=== PATIENT | male | born 1985 | race Caucasian/White ===

== ENCOUNTER 2017-01-30 20:02 | Emergency (ER) | payer MEDICAID ==
[~2017-01-30] VITALS: Ht 175.3 cm; Wt 77.7 kg
[2017-01-30] MEDS ORDERED: SODIUM CHLORIDE 0.9% 1,000 ML IV ONE (20:12)
[2017-01-30] MEDS ORDERED: SODIUM CHLORIDE FLUSH 10ML SYR IVF ONE (20:30)
[2017-01-30] MEDS ORDERED: FAMOTIDINE 20 MG/2 ML IVPush ONE (20:30)
[2017-01-30 20:56] LABS: HEMOGLOBIN 16.1 g/dL (13.7-18.0)
[2017-01-30] MEDS ORDERED: SODIUM CHLORIDE 0.9% 1,000ML IVBOLUS ONE (21:00)
[2017-01-30] MEDS ORDERED: MORPHINE SULFATE 4 MG/ML, 1ML IVPush PRN (21:00)
[2017-01-30] MEDS ORDERED: ONDANSETRON 2MG/ML, 2ML IVPush ONE (21:00)
[2017-01-30 21:06] LABS: BLOOD UREA NITROGEN 18 mg/dL (7-18)
[2017-01-30] MEDS ORDERED: ONDANSETRON 2MG/ML, 2ML ONE (21:06)
[2017-01-30] MEDS ORDERED: FAMOTIDINE 20 MG/2 ML ONE (21:06)
[2017-01-30] MEDS ORDERED: MORPHINE SULFATE 4 MG/ML, 1ML ONE (21:06)
[2017-01-30 21:08] LABS: ASPARTATE AMINO TRANSFERASE 73 U/L (15-37)
[2017-01-30] MEDS ORDERED: OMNIPAQUE 350 MG/ML, 100ML BOTTLE ONE (21:32)
[2017-01-30 22:37] VITALS: BP 127/88
== END 2017-01-30 22:41 | disposition home or self-care (01) ==
LOC: ED 20:58
DX: K52.9 Noninfective gastroenteritis and colitis, unspecified (principal); K64.8 Other hemorrhoids; R94.5 Abnormal results of liver function studies; I10 Essential (primary) hypertension
CPT/HCPCS: 36415; 46600; 74177; 80053; 81003; 83690; 85025; 85610; 85730; 96374; 96375; 99285; J2405; J7030; Q9967; S0028

== ENCOUNTER 2017-02-12 08:32 | Inpatient (IN) | payer MEDICAID ==
[~2017-02-12] VITALS: Ht 175.3 cm; Wt 79.4 kg
[2017-02-12 01:20] VITALS: BP 118/81
[2017-02-12] MEDS ORDERED: ONDANSETRON 2MG/ML, 2ML IVPush ONE (09:00)
[2017-02-12] MEDS ORDERED: SODIUM CHLORIDE 0.9% 1,000ML IVBOLUS ONE ×2 (09:00→11:00)
[2017-02-12] MEDS ORDERED: SODIUM CHLORIDE FLUSH 10ML SYR IVF ONE (09:00)
[2017-02-12] MEDS ORDERED: MORPHINE SULFATE 4 MG/ML, 1ML ONE ×2 (09:20→10:47)
[2017-02-12] MEDS: MORPHINE SULFATE 4 MG/ML, 1ML IVPush PRN ×6 (09:30→23:16)
[2017-02-12 09:50] LABS: ASPARTATE AMINO TRANSFERASE 46 U/L (15-37); BLOOD UREA NITROGEN 15 mg/dL (7-18)
[2017-02-12] MEDS ORDERED: CEFTRIAXONE PMX 1GM/50ML 50 ML IV SCH (11:30)
[2017-02-12] MEDS ORDERED: DOCUSATE 100 MG CAPSULE PO PRN (11:30)
[2017-02-12] MEDS ORDERED: LORazepam 1MG TABLET PO PRN ×2 (11:30)
[2017-02-12] MEDS ORDERED: ONDANSETRON 2MG/ML, 2ML IVP PRN (11:30)
[2017-02-12] MEDS ORDERED: POLYETHYLENE GLYCOL 17 GM PACKET PO PRN (11:30)
[2017-02-12] MEDS ORDERED: ACETAMINOPHEN 325 MG TABLET PO PRN (11:30)
[2017-02-12] MEDS ORDERED: LORazepam 2 MG/ML, 1ML IV PRN ×2 (11:30)
[2017-02-12] MEDS ORDERED: OXYcodone IR 5MG TABLET PO PRN (11:30)
[2017-02-12] MEDS ORDERED: LORazepam 0.5MG TABLET PO PRN (11:30)
[2017-02-12 12:06] VITALS: BP 136/89
[2017-02-12] MEDS ORDERED: ENOXAPARIN 40 MG/0.4 ML SQ SCH (12:30)
[2017-02-12 12:39] LABS: PATH.CAST-FLAG NOT PRESENT; SPERM-FLAG NOT PRESENT; SRC-FLAG NOT PRESENT; XTAL-FLAG NOT PRESENT; YLC-FLAG NOT PRESENT
[2017-02-12] MEDS ORDERED: NICOTINE 7 MG/24 HR PATCH.TD24 TD SCH (13:00)
[2017-02-12] MEDS: METRONIDAZOLE PMX 500MG/100ML 100 ML IV SCH ×2 (13:15→21:51)
[2017-02-12] MEDS: NS + 20MEQ KCL 1,000 ML IV SCH ×2 (13:15→21:51)
[2017-02-12] MEDS: PANTOPRAZOLE 40 MG IV IVP SCH ×2 (13:16→21:00)
[2017-02-12 20:00] VITALS: BP 118/81
[2017-02-12] MEDS: LORazepam 2 MG/ML, 1ML IV PRN (20:01)
[2017-02-13] MEDS: MORPHINE SULFATE 4 MG/ML, 1ML IVPush PRN ×3 (02:16→08:34)
[2017-02-13 02:48] VITALS: BP 143/90
[2017-02-13] MEDS: LORazepam 2 MG/ML, 1ML IV PRN (02:50)
[2017-02-13] MEDS ORDERED: CEFTRIAXONE PMX 2GM/50ML 50 ML IV SCH (03:30)
[2017-02-13 03:59] LABS: BLOOD UREA NITROGEN 7 mg/dL (7-18)
[2017-02-13] MEDS ORDERED: OMNIPAQUE 350 MG/ML, 100ML BOTTLE ONE (04:02)
[2017-02-13] MEDS ORDERED: METR500T PO (04:02)
[2017-02-13] MEDS ORDERED: METO50TA3 PO (04:04)
[2017-02-13] MEDS ORDERED: amlodipine PO (04:05)
[2017-02-13 04:18] LABS: ASPARTATE AMINO TRANSFERASE 42 U/L (15-37)
[2017-02-13] MEDS: NS + 20MEQ KCL 1,000 ML IV SCH (05:20)
[2017-02-13] MEDS: METRONIDAZOLE PMX 500MG/100ML 100 ML IV SCH (05:20)
[2017-02-13] MEDS ORDERED: METOPROLOL TARTRATE 50 MG TABLET PO SCH (06:00)
[2017-02-13 07:01] VITALS: BP 129/78
[2017-02-13] MEDS: PANTOPRAZOLE 40 MG IV IVP SCH (08:46)
[2017-02-13] MEDS ORDERED: metroNIDAZOLE 500 MG TABLET PO SCH (09:00)
[2017-02-13] MEDS ORDERED: AMLODIPINE 5 MG TABLET PO SCH (09:00)
== END 2017-02-13 11:43 | disposition left against medical advice (07) | DRG 872 ==
LOC: ED 10:34 → EDIP 10:44 → 3NE 12:02
PROVIDERS: ADMIT Family Medicine; ATTEND Family Medicine
DX: A41.9 Sepsis, unspecified organism (principal); F10.10 Alcohol abuse, uncomplicated; F12.90 Cannabis use, unspecified, uncomplicated; F17.210 Nicotine dependence, cigarettes, uncomplicated; I10 Essential (primary) hypertension; K29.20 Alcoholic gastritis without bleeding; Z82.49 Family history of ischemic heart disease and other diseases of the circulatory system
CPT/HCPCS: 36415; 71010; 74020; 74177; 80053; 81001; 83605; 83690; 83735; 85025; 85610; 87040; 93005; 96374; 96375; 96376; J0696; J1650; J2405; J3480; Q9967; C9113; J2060; J7030

== ENCOUNTER 2017-03-04 14:02 | Emergency (ER) | payer MEDICAID ==
[~2017-03-04] VITALS: Ht 175.3 cm; Wt 76.7 kg
[~2017-03-04 14:02] MED LIST: METO50TA3 PO; METR500T PO; amlodipine PO
[2017-03-04] MEDS ORDERED: SODIUM CHLORIDE FLUSH 10ML SYR IVF ONE (14:30)
[2017-03-04] MEDS ORDERED: LORazepam 1MG TABLET PO ONE (15:00)
[2017-03-04] MEDS ORDERED: ACETAMINOPHEN 325 MG TABLET PO ONE (15:00)
[2017-03-04 15:05] LABS: BLOOD UREA NITROGEN 6 mg/dL (7-18)
[2017-03-04 15:10] LABS: IS PT STATUS REG ER OR PRE ER? YES
[2017-03-04] MEDS ORDERED: LORazepam 1MG TABLET ONE (15:25)
[2017-03-04] MEDS ORDERED: ACETAMINOPHEN 325 MG TABLET ONE (15:25)
[2017-03-04 15:26] LABS: ACETAMINOPHEN < 2 mcg/mL (10-30)
[2017-03-04 16:30] VITALS: BP 116/76
[2017-03-04] MEDS ORDERED: AMLO10TA2 PO (21:42)
== END 2017-03-04 17:21 | disposition left against medical advice (07) ==
LOC: ED 16:09
DX: F10.129 Alcohol abuse with intoxication, unspecified (principal); I10 Essential (primary) hypertension
CPT/HCPCS: 36415; 71020; 80048; 80307; 80329; 82040; 83690; 84484; 85025; 93005; 99285; G0480

== ENCOUNTER 2017-03-04 21:12 | Emergency (ER) | payer MEDICAID ==
[~2017-03-04] VITALS: Ht 175.3 cm; Wt 78.2 kg
[2017-03-04] MEDS ORDERED: AMLO10TA2 PO (21:42)
[2017-03-04] MEDS ORDERED: ONDANSETRON ODT 4 MG ONE (22:02)
[2017-03-04] MEDS ORDERED: LORazepam 1MG TABLET ONE (22:02)
[2017-03-04] MEDS ORDERED: BUPIVACAINE 0.25% ONE (22:09)
[2017-03-04] MEDS ORDERED: LIDOCAINE 1%, 20ML ONE (22:09)
[2017-03-04] MEDS ORDERED: BUPIVACAINE 0.25% INFIL ONE (22:30)
[2017-03-04] MEDS ORDERED: LIDOCAINE 1%, 20ML SQ ONE (22:30)
[2017-03-04] MEDS ORDERED: LORazepam 1MG TABLET PO ONE (22:30)
[2017-03-04] MEDS ORDERED: ONDANSETRON ODT 4 MG PO ONE (22:30)
[2017-03-04 22:37] VITALS: BP 124/75
== END 2017-03-04 22:39 | disposition home or self-care (01) ==
LOC: ED 22:29
DX: F10.229 Alcohol dependence with intoxication, unspecified (principal); K08.9 Disorder of teeth and supporting structures, unspecified; I10 Essential (primary) hypertension
CPT/HCPCS: 64400; 99284; Q0162

== ENCOUNTER 2017-06-28 18:37 | Emergency (ER) | payer MEDICAID ==
[~2017-06-28] VITALS: Ht 175.3 cm; Wt 84.2 kg
[~2017-06-28 18:37] MED LIST changes: +AMLO10TA2 PO
[2017-06-28 18:42] VITALS: BP 148/101
[2017-06-28] MEDS ORDERED: SODIUM CHLORIDE 0.9% 1,000 ML IV ONE (18:52)
[2017-06-28] MEDS ORDERED: PANTOPRAZOLE 80 MG in SODIUM CHLORIDE 0.9% 100 ML IV SCH (18:52)
[2017-06-28] MEDS ORDERED: PANTOPRAZOLE 80 MG in SODIUM CHLORIDE 0.9% 50 ML IVPB ONE (18:52)
[2017-06-28] MEDS ORDERED: SODIUM CHLORIDE 0.9% 1,000ML IVBOLUS ONE (19:00)
[2017-06-28 19:16] LABS: HEMATOCRIT 48.8 % (39.2-51.8); WHITE BLOOD COUNT 9.8 x10^3/uL (3.4-10)
[2017-06-28 19:28] LABS: ASPARTATE AMINO TRANSFERASE 209 U/L (15-37); BLOOD UREA NITROGEN 6 mg/dL (7-18)
[2017-06-28 19:32] LABS: IS PT STATUS REG ER OR PRE ER? YES
[2017-06-28] MEDS ORDERED: ONDANSETRON 2MG/ML, 2ML IVPush ONE (21:00)
[2017-06-28] MEDS ORDERED: ONDANSETRON 2MG/ML, 2ML ONE (21:06)
[2017-06-28] MEDS ORDERED: MORPHINE SULFATE 4 MG/ML, 1ML ONE ×2 (21:06→21:28)
[2017-06-28] MEDS: MORPHINE SULFATE 4 MG/ML, 1ML IVPush PRN ×2 (21:34→22:04)
== END 2017-06-28 22:05 | disposition home or self-care (01) ==
LOC: ED 22:00
DX: K29.20 Alcoholic gastritis without bleeding (principal); E11.9 Type 2 diabetes mellitus without complications; I10 Essential (primary) hypertension; F17.200 Nicotine dependence, unspecified, uncomplicated
CPT/HCPCS: 36415; 71010; 80053; 83690; 84484; 85025; 86850; 86900; 93005; 96365; 96366; 96367; 96375; 99285; C9113; J2405; J7030

== ENCOUNTER 2017-07-11 08:31 | Emergency (ER) | payer MEDICAID ==
[~2017-07-11] VITALS: Ht 175.3 cm; Wt 83.8 kg
[2017-07-11] MEDS ORDERED: SODIUM CHLORIDE 0.9% 1,000 ML IV ONE (09:29)
[2017-07-11] MEDS ORDERED: SODIUM CHLORIDE 0.9% 1,000ML IVBOLUS ONE (09:30)
[2017-07-11] MEDS ORDERED: ONDANSETRON 2MG/ML, 2ML ONE (09:43)
[2017-07-11] MEDS ORDERED: FAMOTIDINE 20 MG/2 ML ONE (09:44)
[2017-07-11] MEDS ORDERED: LORazepam 2 MG/ML, 1ML ONE (09:44)
[2017-07-11 09:48] LABS: HEMATOCRIT 50.3 % (39.2-51.8); HEMOGLOBIN 17.5 g/dL (13.7-18.0); WHITE BLOOD COUNT 5.2 x10^3/uL (3.4-10)
[2017-07-11] MEDS ORDERED: ONDANSETRON 2MG/ML, 2ML IVPush ONE (10:00)
[2017-07-11] MEDS ORDERED: FAMOTIDINE 20 MG/2 ML IVP ONE (10:00)
[2017-07-11] MEDS ORDERED: LORazepam 2 MG/ML, 1ML IVPush ONE (10:00)
[2017-07-11] MEDS ORDERED: MORPHINE SULFATE 4 MG/ML, 1ML ONE ×2 (10:03→11:00)
[2017-07-11 10:04] LABS: ASPARTATE AMINO TRANSFERASE 86 U/L (15-37); BLOOD UREA NITROGEN 8 mg/dL (7-18)
[2017-07-11] MEDS ORDERED: MORPHINE SULFATE 4 MG/ML, 1ML IVPush PRN (10:30)
[2017-07-11 13:59] VITALS: BP 125/75
== END 2017-07-11 14:02 | disposition home or self-care (01) ==
LOC: ED 09:28
DX: K29.20 Alcoholic gastritis without bleeding (principal); E11.9 Type 2 diabetes mellitus without complications; I10 Essential (primary) hypertension
CPT/HCPCS: 36415; 74177; 80053; 81003; 83690; 85025; 96361; 96374; 96375; 99285; J2060; J2405; J7030; S0028

== ENCOUNTER 2017-07-12 15:15 | Emergency (ER) | payer MEDICAID ==
[~2017-07-12] VITALS: Ht 175.3 cm; Wt 83.5 kg
[2017-07-12 15:49] LABS: HEMATOCRIT 48.9 % (39.2-51.8); HEMOGLOBIN 16.9 g/dL (13.7-18.0); WHITE BLOOD COUNT 7.1 x10^3/uL (3.4-10)
[2017-07-12] MEDS ORDERED: MAALOX/HYOSCYAMINE/LIDOCAINE 45 ML BTL PO ONE (16:00)
[2017-07-12 16:03] LABS: ASPARTATE AMINO TRANSFERASE 107 U/L (15-37); BLOOD UREA NITROGEN 7 mg/dL (7-18)
[2017-07-12] MEDS ORDERED: MAALOX/HYOSCYAMINE/LIDOCAINE 45 ML BTL ONE (16:03)
[2017-07-12 16:12] VITALS: BP 129/100
== END 2017-07-12 16:34 | disposition left against medical advice (07) ==
LOC: ED 15:54
DX: K76.0 Fatty (change of) liver, not elsewhere classified (principal); K70.10 Alcoholic hepatitis without ascites; K29.20 Alcoholic gastritis without bleeding; I10 Essential (primary) hypertension; E11.9 Type 2 diabetes mellitus without complications
CPT/HCPCS: 36415; 80053; 83690; 85025; 85610; 99284

== ENCOUNTER 2017-11-08 18:22 | Emergency (ER) | payer MEDICAID ==
[~2017-11-08] VITALS: Ht 175.3 cm; Wt 86.6 kg
[~2017-11-08 18:22] MED LIST changes: -METO50TA3 PO; +METO50TA6 PO
[2017-11-08 19:14] LABS: BASOPHILS # (AUTO) 0.02 x10^3/uL (0-0.1); BASOPHILS % (AUTO) 0 % (0-1); EOSINOPHILS # (AUTO) 0.12 x10^3/uL (0-0.4); EOSINOPHILS % (AUTO) 3 % (1-7); LYMPHOCYTES % (AUTO) 34 % (22-44); MD NO; MEAN CORPUSCULAR HEMOGLOBIN 33.5 pg (27.5-34.5); MEAN CORPUSCULAR HGB CONC 34.5 g/dL (33.2-36.2); MEAN CORPUSCULAR VOLUME 97.1 fL (81-97); MEAN PLATELET VOLUME 8.5 fL (7.4-10.4); MONOCYTES # (AUTO) 0.99 x10^3/uL (0.2-0.8); MONOCYTES % (AUTO) 20 % (2-9); NEUTROPHILS # (AUTO) 2.21 x10^3/uL (1.8-6.8); NEUTROPHILS % (AUTO) 44 % (42-75); PLATELET COUNT 245 x10^3/uL (130-400); RED BLOOD COUNT 4.78 x10^6/uL (4.38-5.82); RED CELL DISTRIBUTION WIDTH 12.7 % (9.4-14.8)
[2017-11-08] MEDS ORDERED: DIPHENHYDRAMINE 50 MG/ML, 1ML ONE (19:20)
[2017-11-08] MEDS ORDERED: KETOROLAC 30 MG/1 ML ONE (19:20)
[2017-11-08] MEDS ORDERED: PROCHLORPERAZINE 5 MG/ML, 2ML ONE (19:20)
[2017-11-08 19:25] LABS: ALANINE AMINOTRANSFERASE 163 U/L (12-78); ALBUMIN 3.7 g/dL (3.4-5.0); ANION GAP 8 mmol/L (5-15); CHLORIDE 108 mmol/L (98-107); CREATININE 0.96 mg/dL (0.7-1.3)
[2017-11-08 19:27] LABS: ALKALINE PHOSPHATASE 60 U/L (45-117); BILIRUBIN,TOTAL 0.4 mg/dL (0.2-1.0); TOTAL PROTEIN 7.2 g/dL (6.4-8.2)
[2017-11-08 19:28] VITALS: BP 154/96
[2017-11-08] MEDS ORDERED: PROCHLORPERAZINE 5 MG/ML, 2ML IVPush ONE (19:30)
[2017-11-08] MEDS ORDERED: KETOROLAC 30 MG/1 ML IVPush ONE (19:30)
[2017-11-08] MEDS ORDERED: SODIUM CHLORIDE FLUSH 10ML SYR IVF ONE (19:30)
[2017-11-08] MEDS ORDERED: DIPHENHYDRAMINE 50 MG/ML, 1ML IVPush ONE (19:30)
[2017-11-08] MEDS ORDERED: SODIUM CHLORIDE 0.9% 1,000ML IVBOLUS ONE (19:30)
[2017-11-08 19:46] LABS: TROPONIN I < 0.015 ng/mL (0.000-0.045)
[2017-11-09] MEDS ORDERED: DIAZ2TAB PO (05:40)
== END 2017-11-08 19:46 | disposition left against medical advice (07) ==
LOC: ED 19:40
DX: R07.2 Precordial pain (principal); R51 Headache; F41.1 Generalized anxiety disorder; E11.9 Type 2 diabetes mellitus without complications; I10 Essential (primary) hypertension
CPT/HCPCS: 36415; 71045; 80053; 84484; 85025; 93005; 96374; 96375; 99285; J0780; J1200; J1885; J7030

== ENCOUNTER 2018-05-18 03:56 | Emergency (ER) | payer MEDICAID ==
[~2018-05-18] VITALS: Ht 175.3 cm; Wt 65.0 kg
[~2018-05-18 03:56] MED LIST changes: +DIAZ2TAB PO
[2018-05-18 04:41] LABS: BASOPHILS # (AUTO) 0.05 x10^3/uL (0-0.1); BASOPHILS % (AUTO) 1 % (0-1); EOSINOPHILS # (AUTO) 0.05 x10^3/uL (0-0.4); EOSINOPHILS % (AUTO) 1 % (1-7); LYMPHOCYTES # (AUTO) 3.65 x10^3/uL (1-3.4); LYMPHOCYTES % (AUTO) 47 % (22-44); MD NO; MEAN CORPUSCULAR HGB CONC 34.3 g/dL (33.2-36.2); MEAN CORPUSCULAR VOLUME 96.2 fL (81-97); MONOCYTES # (AUTO) 0.59 x10^3/uL (0.2-0.8); MONOCYTES % (AUTO) 8 % (2-9); NEUTROPHILS # (AUTO) 3.36 x10^3/uL (1.8-6.8); NEUTROPHILS % (AUTO) 44 % (42-75); PLATELET COUNT 359 x10^3/uL (130-400); RED BLOOD COUNT 5.18 x10^6/uL (4.38-5.82); RED CELL DISTRIBUTION WIDTH 12.3 % (9.4-14.8)
[2018-05-18 04:53] LABS: ALANINE AMINOTRANSFERASE 27 U/L (12-78); ALBUMIN 3.9 g/dL (3.4-5.0); ANION GAP 9 mmol/L (5-15); CALCIUM 8.6 mg/dL (8.5-10.1); CHLORIDE 113 mmol/L (98-107); CREATININE 0.91 mg/dL (0.7-1.3)
[2018-05-18 04:58] LABS: ALKALINE PHOSPHATASE 55 U/L (45-117); BILIRUBIN,TOTAL 0.3 mg/dL (0.2-1.0); TOTAL PROTEIN 7.2 g/dL (6.4-8.2); TROPONIN I < 0.015 ng/mL (0.000-0.045)
[2018-05-18 05:00] VITALS: BP 137/74
== END 2018-05-18 05:51 | disposition left against medical advice (07) ==
LOC: ED 05:45
DX: K29.20 Alcoholic gastritis without bleeding (principal); F10.220 Alcohol dependence with intoxication, uncomplicated; I10 Essential (primary) hypertension
CPT/HCPCS: 36415; 71045; 80053; 80307; 83690; 84484; 85025; 93005; 99285

== ENCOUNTER 2019-04-27 20:37 | Emergency (ER) | payer MEDICAID ==
[~2019-04-27] VITALS: Ht 175.3 cm; Wt 91.1 kg
[~2019-04-27 20:37] MED LIST changes: -AMLO10TA2 PO; +AMLO10TA8 PO
[2019-04-27] MEDS ORDERED: FAMOTIDINE 20 MG/2 ML IVP ONE (21:30)
[2019-04-27] MEDS ORDERED: SODIUM CHLORIDE FLUSH 10ML SYR IVF ONE (21:30)
[2019-04-27] MEDS ORDERED: ONDANSETRON 2MG/ML, 2ML IVPush ONE (21:30)
--- NOTE | 2019-04-27 21:30 | NUR ---
PT PRESENTED TO ED WITH LEFT MID QUADRANT ABD PAIN SINCE TODAY. PT WITH HX: ALCOHOLISM. PT STATES THAT HIS LAST DRINK WAS TODAY. PT A&OX4. PT PLACED IN ROOM AND PLACED ON BP AND CONT. PULSE OXIMETER. ASSESSMENT COMPLETED.
[2019-04-27] MEDS ORDERED: FAMOTIDINE 20 MG/2 ML ONE (21:35)
[2019-04-27] MEDS ORDERED: ONDANSETRON 2MG/ML, 2ML ONE (21:36)
[2019-04-27] MEDS ORDERED: HYDROmorphone 2 MG/ML, 1ML ONE (21:36)
[2019-04-27 21:37] LABS: BASOPHILS # (AUTO) 0.04 x10^3/uL (0-0.1); BASOPHILS % (AUTO) 1 % (0-1); EOSINOPHILS # (AUTO) 0.07 x10^3/uL (0-0.4); EOSINOPHILS % (AUTO) 1 % (1-7); LYMPHOCYTES # (AUTO) 2.79 x10^3/uL (1-3.4); LYMPHOCYTES % (AUTO) 45 % (22-44); MD NO; MEAN CORPUSCULAR HEMOGLOBIN 34.2 pg (27.5-34.5); MEAN CORPUSCULAR HGB CONC 34.4 g/dL (33.2-36.2); MEAN CORPUSCULAR VOLUME 99.3 fL (81-97); MEAN PLATELET VOLUME 7.9 fL (7.4-10.4); MONOCYTES # (AUTO) 0.49 x10^3/uL (0.2-0.8); MONOCYTES % (AUTO) 8 % (2-9); NEUTROPHILS # (AUTO) 2.78 x10^3/uL (1.8-6.8); NEUTROPHILS % (AUTO) 45 % (42-75); PLATELET COUNT 295 x10^3/uL (130-400); RED BLOOD COUNT 4.74 x10^6/uL (4.38-5.82); RED CELL DISTRIBUTION WIDTH 13.5 % (9.4-14.8)
[2019-04-27] MEDS: HYDROmorphone 2 MG/ML, 1ML IVPush PRN ×2 (21:39→22:50)
[2019-04-27 21:48] LABS: ALBUMIN 3.4 g/dL (3.4-5.0); ANION GAP 7 mmol/L (5-15); CALCIUM 7.2 mg/dL (8.5-10.1); CHLORIDE 111 mmol/L (98-107)
[2019-04-27 21:51] LABS: ALKALINE PHOSPHATASE 61 U/L (45-117); BILIRUBIN,TOTAL 0.5 mg/dL (0.2-1.0); CREATININE 0.96 mg/dL (0.7-1.3); TOTAL PROTEIN 6.8 g/dL (6.4-8.2)
[2019-04-27 22:03] LABS: ALANINE AMINOTRANSFERASE 90 U/L (12-78)
[2019-04-27 22:04] LABS: INTERNATIONAL NORMALIZED RATIO 1.03 (0.93-1.1); PROTHROMBIN TIME 10.8 Seconds (9.6-11.5)
--- NOTE | 2019-04-27 22:32 | NUR ---
PT TAKEN TO CT SCAN.
--- NOTE | 2019-04-27 22:49 | NUR ---
PT WITH PAIN OF 5/10 AND REQUESTING MORE PAIN MEDICATIONS.
--- NOTE | 2019-04-27 23:09 | NUR ---
RECEIVED BS REPORT FROM JIAN MARTIN TO ASSUME CARE OF PT. URINE SENT AT THIS TIME. PT. DENIES OTHER NEEDS.
[2019-04-27 23:30] LABS: MICROSCOPIC NOT IND
[2019-04-27 23:48] LABS: CULTURE INDICATED? NO
--- NOTE | 2019-04-28 | NUR ---
CHART UP FOR RECHECK BY ERMD AT THIS TIME.
--- NOTE | 2019-04-28 00:17 | NUR ---
DR. ODONNELL IN TO DISCUSS ED FINDINGS AND POC WITH PT. AND FAMILY.
--- NOTE | 2019-04-28 00:25 | NUR ---
BREAK RN: PT RESTING IN BED, PT DESATED TO 86% ON RA. PT PLACED BACK ON O2 PER N/C. PT AWAITING ROOM ASSIGNMENT
[2019-04-28] MEDS ORDERED: SODIUM CHLORIDE 0.9% 1,000ML IVBOLUS ONE (00:30)
[2019-04-28] MEDS ORDERED: KETOROLAC 30 MG/1 ML IVPush ONE (00:30)
[2019-04-28] MEDS ORDERED: PANTOPRAZOLE 40 MG IV IVPush SCH (00:30)
[2019-04-28] MEDS ORDERED: HYDROmorphone 1 MG/ML, 1ML INJ IV ONE (00:30)
[2019-04-28] MEDS ORDERED: KETOROLAC 30 MG/1 ML ONE (00:38)
[2019-04-28] MEDS ORDERED: HYDROmorphone 2 MG/ML, 1ML ONE (00:39)
[2019-04-28] MEDS ORDERED: PANTOPRAZOLE 40 MG IV ONE (00:39)
--- NOTE | 2019-04-28 01:21 | NUR ---
REPORT TO JIAN DAMON. FLOOR READY FOR PT. TRANSPORT.
[2019-04-28 01:47] VITALS: BP 156/98
[2019-04-28 02:02] VITALS: BP 156/98
[2019-04-28] MEDS ORDERED: OMNIPAQUE 350 MG/ML, 100ML BOTTLE ONE (05:18)
== END 2019-04-28 00:23 ==
LOC: ED 22:48 → EDIP 04-28 00:23 → UNDOADMIN 04-28 00:23 → ED 04-28 00:23 → EDIP 04-28 01:43 → 3NW 04-28 01:43 → UNDODISIN 04-28 02:50
DX: R10.9 Unspecified abdominal pain (principal); I11.9 Hypertensive heart disease without heart failure; E11.9 Type 2 diabetes mellitus without complications; F17.200 Nicotine dependence, unspecified, uncomplicated; Z72.9 Problem related to lifestyle, unspecified; Z87.19 Personal history of other diseases of the digestive system
CPT/HCPCS: 36415; 71045; 74177; 80053; 81003; 83605; 83690; 85025; 85610; 85730; 96374; 96375; 96376; 99284; C9113; J1170; J1885; J2405; J3490; J7030; Q9967; 96361; G0378

== ENCOUNTER 2019-05-22 22:49 | Emergency (ER) | payer MEDICAID ==
[~2019-05-22] VITALS: Ht 177.8 cm; Wt 91.2 kg
[2019-05-22] MEDS ORDERED: ONDANSETRON 2MG/ML, 2ML ONE (23:40)
[2019-05-22] MEDS ORDERED: MORPHINE SULFATE 4 MG/ML, 1ML ONE (23:40)
--- NOTE | 2019-05-22 23:50 | NUR ---
FIRST CONTACT WITH PT. PT WAS WALKING TO THE STORE AND GOT [facility] 8/10 CHEST PAIN AND SOB THAT RAIDAITED TO L ARM. PT TOOK 324 ASA PRIOR TO EMS. EMS GAVE 0.4 NITRO AND 50 MCG FENTYNAL THAT BROUGHT PT PAIN DOWN TO 5/10. PT'S AOX4. RESPS EVEN AND UNLABORED. ALL MONITORS IN PLACE. CALL LIGHT WITHIN REACH. EDMD AT BEDSIDE TO EVALUATE AT THIS TIME. PT'S AOX4. RESPS EVEN AND UNLABORED.
--- NOTE | 2019-05-22 23:53 | NUR ---
PT MEDICATED PER EMAR. PT TOLERATED WELL.
[2019-05-22 23:58] LABS: ALANINE AMINOTRANSFERASE 98 U/L (12-78); ALBUMIN 3.8 g/dL (3.4-5.0); ANION GAP 9 mmol/L (5-15); CHLORIDE 109 mmol/L (98-107); CREATININE 0.88 mg/dL (0.7-1.3)
[2019-05-22 23:59] LABS: BASOPHILS # (AUTO) 0.02 x10^3/uL (0-0.1); BASOPHILS % (AUTO) 0 % (0-1); EOSINOPHILS # (AUTO) 0.02 x10^3/uL (0-0.4); EOSINOPHILS % (AUTO) 0 % (1-7); LYMPHOCYTES # (AUTO) 1.93 x10^3/uL (1-3.4); LYMPHOCYTES % (AUTO) 34 % (22-44); MD NO; MEAN CORPUSCULAR HGB CONC 34.1 g/dL (33.2-36.2); MEAN CORPUSCULAR VOLUME 99.6 fL (81-97); MEAN PLATELET VOLUME 7.8 fL (7.4-10.4); MONOCYTES # (AUTO) 0.38 x10^3/uL (0.2-0.8); MONOCYTES % (AUTO) 7 % (2-9); NEUTROPHILS # (AUTO) 3.35 x10^3/uL (1.8-6.8); NEUTROPHILS % (AUTO) 59 % (42-75); PLATELET COUNT 300 x10^3/uL (130-400); RED BLOOD COUNT 4.92 x10^6/uL (4.38-5.82); RED CELL DISTRIBUTION WIDTH 13.7 % (9.4-14.8)
[2019-05-23] MEDS ORDERED: ONDANSETRON 2MG/ML, 2ML IVPush ONE
[2019-05-23] MEDS: MORPHINE SULFATE 4 MG/ML, 1ML IVPush PRN ×2 (00:02→00:30)
[2019-05-23 00:03] LABS: ALKALINE PHOSPHATASE 57 U/L (45-117); BILIRUBIN,TOTAL 0.5 mg/dL (0.2-1.0); TOTAL PROTEIN 7.5 g/dL (6.4-8.2); TROPONIN I < 0.015 ng/mL (0.000-0.045)
[2019-05-23] MEDS ORDERED: MORPHINE SULFATE 4 MG/ML, 1ML ONE (00:28)
--- NOTE | 2019-05-23 00:33 | NUR ---
PT MEDICATED PER EMAR FOR PAIN. PT TOLERATED WELL.
[2019-05-23 00:46] LABS: MICROSCOPIC NOT IND
[2019-05-23 00:50] LABS: CULTURE INDICATED? YES
[2019-05-23] MEDS ORDERED: HYDROmorphone 1 MG/ML, 1ML VIAL ONE (01:12)
[2019-05-23 01:28] VITALS: BP 133/91
--- NOTE | 2019-05-23 01:29 | NUR ---
PT MEDICATED PER EMAR FOR PAIN. PT TOLERATED WELL.
[2019-05-23] MEDS ORDERED: HYDROmorphone 2 MG/ML, 1ML IVPush ONE (01:30)
[2019-05-23] MEDS ORDERED: OMNIPAQUE 350 MG/ML, 100ML BOTTLE ONE (01:51)
--- NOTE | 2019-05-23 02:02 | NUR ---
PT BACK TO ROOM FROM CT NOW.
--- NOTE | 2019-05-23 03:26 | NUR ---
Patient given discharge instructions and they have confirmed that they understand the instructions. Patient ambulatory with steady gait.
== END 2019-05-23 03:27 | disposition home or self-care (01) ==
LOC: ED 23:47
DX: K52.9 Noninfective gastroenteritis and colitis, unspecified (principal); K29.20 Alcoholic gastritis without bleeding; F10.229 Alcohol dependence with intoxication, unspecified; I10 Essential (primary) hypertension; E11.9 Type 2 diabetes mellitus without complications; F41.1 Generalized anxiety disorder; F17.200 Nicotine dependence, unspecified, uncomplicated; Z72.9 Problem related to lifestyle, unspecified; Z75.9 Unspecified problem related to medical facilities and other health care; Z91.14 Patient's other noncompliance with medication regimen; Z63.8 Other specified problems related to primary support group; Y90.9 Presence of alcohol in blood, level not specified
CPT/HCPCS: 36415; 74022; 74177; 80053; 80307; 81003; 83690; 84484; 85025; 87086; 93005; 96374; 96375; 99284; J1170; J2270; J2405; Q9967; 96376

== ENCOUNTER 2021-02-24 12:54 | Inpatient (IN) | payer MEDICAID ==
[~2021-02-24] VITALS: Ht 175.3 cm; Wt 94.7 kg
[~2021-02-24 12:54] MED LIST changes: +AMLO-211 PO; -AMLO10TA8 PO; +BUPR150T13 PO
--- NOTE | 2021-02-24 13:25 | NUR ---
PT. ARRIVES A & O X 4 WITH A GCS OF 15 WITH C/O HYPOXIA AFTER BEING GIVEN SUBTREX. PT. REPORTS THAT HE WAS ALSO GIVEN VALIUM 10 MG PO AT APPROXIMATELY 0800 AM TODAY. PT.'S ROOM AIR SATURATION IS 88%. HIS SATS ARE 97% ON 4/L NC. PT. IS A SMOKER AND WAS ADMITTED AT [facility] AND BEING TREATED FOR SI AND POLYSUBSTANCE ABUSE. HE REPORTS DRINKING ABOUT 2 BOTTLES A DAY IN ADDITION TO USING HEROIN, METH AND MARIJUANA. PT.'S BREATH SOUNDS ARE DIMINISHED IN THE BASES AND HE DOES C/O BACK PAIN WELL LOWER ABD. PAIN. A 12 LEAD EKG WAS DONE. IV ACCESS WAS ESTABLISHED BY ISRA IN THE FIELD. PT. HAS THE CP MONITOR IN PLACE AND A SITTER IS AT HIS BEDSIDE FROM [facility]. PT.'S SKIN IS DIAPHORETIC AND HER REMAINS CALM AND COOPERATIVE. CAP REFILL IS LESS THAN 2 SECONDS AND PULSES ARE +2 THROUGHOUT. HE MOVES ALL EXTREMITIES WNL. SIDERAILS REMAIN UP X 2.
[2021-02-24] MEDS ORDERED: SODIUM CHLORIDE 0.9% 1,000ML IVBOLUS ONE (13:30)
[2021-02-24] MEDS ORDERED: SODIUM CHLORIDE FLUSH 10ML SYR IVF ONE (13:30)
--- NOTE | 2021-02-24 13:47 | NUR ---
PT.'S NS BOLUS IS INFUSING.
--- NOTE | 2021-02-24 14:06 | NUR ---
#20 G PLACED IN THE PT.'S RAC FOR THE CTA. LABS OBTAINED FROM THE IV START.
--- NOTE | 2021-02-24 14:12 | NUR ---
PT.'S HOB WAS ELEVATED AND HE WAS GIVEN A BLANKET FOR WARMTH WELL SOME ICE CHIPS FOR HIS MOUTH. CP MONITOR REMAINS IN PLACE.
[2021-02-24 14:16] LABS: BASOPHILS % (AUTO) 1 % (0-1); EOSINOPHILS % (AUTO) 0 % (1-7); LYMPHOCYTES % (AUTO) 21 % (22-44); MEAN CORPUSCULAR HEMOGLOBIN 32.9 pg (27.5-34.5); MEAN PLATELET VOLUME 8.6 fL (7.4-10.4); MONOCYTES % (AUTO) 9 % (2-9); NEUTROPHILS % (AUTO) 69 % (42-75); PLATELET COUNT 333 x10^3/uL (130-400); RED BLOOD COUNT 4.43 x10^6/uL (4.38-5.82); RED CELL DISTRIBUTION WIDTH 13.2 % (9.4-14.8)
[2021-02-24 14:19] LABS: MD NO
[2021-02-24 14:27] LABS: ALANINE AMINOTRANSFERASE 51 U/L (12-78); ALBUMIN 3.2 g/dL (3.4-5.0); ANION GAP 5 mmol/L (5-15); CALCIUM 8.1 mg/dL (8.5-10.1); CHLORIDE 102 mmol/L (98-107); CREATININE 0.78 mg/dL (0.7-1.3)
[2021-02-24 14:31] LABS: ALKALINE PHOSPHATASE 62 U/L (45-117); BILIRUBIN,TOTAL 0.3 mg/dL (0.2-1.0); TOTAL PROTEIN 6.7 g/dL (6.4-8.2); TROPONIN I 0.069 ng/mL (0.000-0.045)
[2021-02-24] MEDS ORDERED: OMNIPAQUE 350 MG/ML, 100ML BOTTLE ONE (15:16)
--- NOTE | 2021-02-24 15:18 | NUR ---
REPORT WAS CALLED TO CHRISTOS VILLAR.
[2021-02-24] MEDS ORDERED: hydrALAzine 20 MG/ML, 1ML IVPush PRN (16:30)
[2021-02-24] MEDS ORDERED: ONDANSETRON 2MG/ML, 2ML IVPush PRN (16:30)
[2021-02-24] MEDS ORDERED: ACETAMINOPHEN 325 MG TABLET PO PRN (16:30)
[2021-02-24] MEDS ORDERED: LORazepam 1MG TABLET PO PRN ×3 (16:30)
[2021-02-24] MEDS ORDERED: ONDANSETRON ODT 4 MG PO PRN (16:30)
[2021-02-24] MEDS ORDERED: ENALAPRILAT 1.25 MG/ML, 2ML IVPush PRN (16:30)
[2021-02-24] MEDS ORDERED: LORazepam 2 MG/ML, 1ML IV PRN ×5 (16:30)
[2021-02-24] MEDS ORDERED: GUAIFENESIN/DM 200-20MG, 10ML UDC PO PRN (16:30)
[2021-02-24] MEDS ORDERED: BACLOFEN 10 MG TABLET PO PRN (16:30)
[2021-02-24] MEDS ORDERED: NICOTINE 21 MG/24 HR PATCH.TD24 TD ONE (17:30)
--- NOTE | 2021-02-24 18:13 | NUR ---
CALLED REPORT TO VENITA VILLAR ABOUT REASON PT IS BEING ADMITED
[2021-02-24] MEDS: LORazepam 1MG TABLET PO PRN (18:38)
[2021-02-24] MEDS: ENOXAPARIN 40 MG/0.4 ML SQ SCH (18:39)
[2021-02-24 20:20] VITALS: BP 114/72
[2021-02-24] MEDS: METOPROLOL TARTRATE 50 MG TAB PO SCH (20:33)
[2021-02-24] MEDS: GABAPENTIN 300 MG CAPSULE PO SCH (20:33)
[2021-02-24] MEDS: BUPROPION SR 150 MG TABLET PO SCH (20:34)
[2021-02-24] MEDS: MELATONIN 5 MG TABLET PO SCH (20:34)
[2021-02-24] MEDS: AMLODIPINE 10 MG TAB PO SCH (20:35)
[2021-02-24 22:52] LABS: TROPONIN I 0.071 ng/mL (0.000-0.045)
[2021-02-25 02:13] VITALS: BP 103/73
[2021-02-25 05:43] LABS: TROPONIN I 0.068 ng/mL (0.000-0.045)
[2021-02-25] MEDS: BUPROPION SR 150 MG TABLET PO SCH ×2 (08:10→21:27)
[2021-02-25] MEDS: SENNA/DOCUSATE TABLET PO SCH (08:10)
[2021-02-25] MEDS: GABAPENTIN 300 MG CAPSULE PO SCH ×2 (08:10→21:27)
[2021-02-25 08:20] VITALS: BP 114/79
[2021-02-25 12:36] VITALS: BP 118/69
[2021-02-25 20:04] VITALS: BP 138/81
[2021-02-25] MEDS: ENOXAPARIN 40 MG/0.4 ML SQ SCH (21:26)
[2021-02-25] MEDS: MELATONIN 5 MG TABLET PO SCH (21:27)
[2021-02-25] MEDS: AMLODIPINE 10 MG TAB PO SCH (21:27)
[2021-02-25] MEDS: METOPROLOL TARTRATE 50 MG TAB PO SCH (21:27)
[2021-02-25] MEDS: LORazepam 0.5MG TABLET PO PRN (21:28)
[2021-02-26 01:04] VITALS: BP 128/81
[2021-02-26] MEDS: LORazepam 1MG TABLET PO PRN (03:44)
[2021-02-26 07:30] VITALS: BP 116/74
[2021-02-26] MEDS: SENNA/DOCUSATE TABLET PO SCH (08:36)
[2021-02-26] MEDS: GABAPENTIN 300 MG CAPSULE PO SCH ×2 (08:36→19:52)
[2021-02-26] MEDS: BUPROPION SR 150 MG TABLET PO SCH ×2 (08:36→19:51)
[2021-02-26 13:58] VITALS: BP 129/82
[2021-02-26 18:59] VITALS: BP 138/84
[2021-02-26] MEDS: AMLODIPINE 10 MG TAB PO SCH (19:42)
[2021-02-26] MEDS: METOPROLOL TARTRATE 50 MG TAB PO SCH (19:42)
[2021-02-26] MEDS: LORazepam 0.5MG TABLET PO PRN (19:52)
[2021-02-26] MEDS: ENOXAPARIN 40 MG/0.4 ML SQ SCH (19:52)
[2021-02-26] MEDS: MELATONIN 5 MG TABLET PO SCH (19:54)
[2021-02-26] MEDS: TEMAZEPAM 15 MG CAPSULE PO PRN (22:55)
[2021-02-27 01:02] VITALS: BP 127/86
[2021-02-27 07:06] VITALS: BP 129/82
[2021-02-27] MEDS: GABAPENTIN 300 MG CAPSULE PO SCH ×2 (08:55→21:37)
[2021-02-27] MEDS: BUPROPION SR 150 MG TABLET PO SCH ×2 (08:55→21:37)
[2021-02-27] MEDS: SENNA/DOCUSATE TABLET PO SCH (08:55)
[2021-02-27 13:11] VITALS: BP 130/77
[2021-02-27 19:17] VITALS: BP 141/85
[2021-02-27] MEDS: MELATONIN 5 MG TABLET PO SCH (21:00)
[2021-02-27] MEDS: METOPROLOL TARTRATE 50 MG TAB PO SCH (21:37)
[2021-02-27] MEDS: ENOXAPARIN 40 MG/0.4 ML SQ SCH (21:37)
[2021-02-27] MEDS: TEMAZEPAM 15 MG CAPSULE PO PRN (21:37)
[2021-02-27] MEDS: AMLODIPINE 10 MG TAB PO SCH (21:37)
[2021-02-28 00:59] VITALS: BP 106/72
[2021-02-28 06:14] VITALS: BP 120/73
[2021-02-28 06:48] VITALS: BP 106/67
[2021-02-28] MEDS: SENNA/DOCUSATE TABLET PO SCH (09:50)
[2021-02-28] MEDS: BUPROPION SR 150 MG TABLET PO SCH ×2 (09:51→21:19)
[2021-02-28] MEDS: GABAPENTIN 300 MG CAPSULE PO SCH ×2 (09:51→21:19)
[2021-02-28] MEDS ORDERED: VANCOMYCIN PER PHARMACY MC PRN (11:30)
[2021-02-28] MEDS ORDERED: Enoxaparin 1 mg/kg protocol SQ SCH (11:30)
[2021-02-28 11:33] VITALS: BP 128/86
[2021-02-28] MEDS ORDERED: ENOXAPARIN 100 MG/ML SQ SCH (12:00)
[2021-02-28] MEDS ORDERED: LORazepam 1MG TABLET PO ONE (12:00)
[2021-02-28] MEDS: MORPHINE SULFATE 4 MG/ML, 1ML IVPush PRN ×3 (12:12→21:35)
[2021-02-28 12:18] LABS: TROPONIN I < 0.015 ng/mL (0.000-0.045)
[2021-02-28] MEDS ORDERED: PHARMACOKINETIC CONSULTATION MC ONE (12:30)
[2021-02-28] MEDS ORDERED: VANCOMYCIN 2,200 MG in SODIUM CHLORIDE 0.9% 500 ML IV ONE (12:30)
[2021-02-28] MEDS ORDERED: PHARMACOKINETIC MONITORING MC PRN (12:30)
[2021-02-28] MEDS: CEFTRIAXONE 2 GM in DEXTROSE 5% 50 ML IVPB SCH ×2 (14:29→15:34)
[2021-02-28] MEDS: ENOXAPARIN 100 MG/ML SQ SCH (14:56)
[2021-02-28 18:24] VITALS: BP 122/82
[2021-02-28] MEDS: METOPROLOL TARTRATE 50 MG TAB PO SCH (21:18)
[2021-02-28] MEDS: AMLODIPINE 10 MG TAB PO SCH (21:19)
[2021-02-28] MEDS: MELATONIN 5 MG TABLET PO SCH (21:19)
[2021-02-28] MEDS: TEMAZEPAM 15 MG CAPSULE PO PRN (21:19)
[2021-03-01 00:46] VITALS: BP 116/78
[2021-03-01] MEDS ORDERED: VANCOMYCIN 1,700 MG in SODIUM CHLORIDE 0.9% 250 ML IV SCH (01:30)
[2021-03-01] MEDS: VANCOMYCIN 1,900 MG in SODIUM CHLORIDE 0.9% 250 ML IV SCH ×2 (01:47→14:45)
[2021-03-01] MEDS: ENOXAPARIN 100 MG/ML SQ SCH (01:55)
[2021-03-01] MEDS: MORPHINE SULFATE 4 MG/ML, 1ML IVPush PRN (01:59)
[2021-03-01 04:46] LABS: BASOPHILS % (AUTO) 0 % (0-1); EOSINOPHILS % (AUTO) 1 % (1-7); LYMPHOCYTES % (AUTO) 27 % (22-44); MEAN CORPUSCULAR HEMOGLOBIN 33.5 pg (27.5-34.5); MEAN PLATELET VOLUME 8.5 fL (7.4-10.4); MONOCYTES % (AUTO) 9 % (2-9); NEUTROPHILS % (AUTO) 63 % (42-75); PLATELET COUNT 380 x10^3/uL (130-400); RED BLOOD COUNT 5.09 x10^6/uL (4.38-5.82); RED CELL DISTRIBUTION WIDTH 13.1 % (9.4-14.8)
[2021-03-01 04:50] LABS: MD NO
[2021-03-01 05:04] LABS: ALBUMIN 3.3 g/dL (3.4-5.0); ANION GAP 5 mmol/L (5-15); CALCIUM 8.6 mg/dL (8.5-10.1); CHLORIDE 103 mmol/L (98-107)
[2021-03-01 05:08] LABS: ALANINE AMINOTRANSFERASE 43 U/L (12-78); ALKALINE PHOSPHATASE 65 U/L (45-117); BILIRUBIN,TOTAL 0.8 mg/dL (0.2-1.0); TOTAL PROTEIN 7.2 g/dL (6.4-8.2)
[2021-03-01 06:11] VITALS: BP 119/76
[2021-03-01] MEDS: OXYcodone/APAP 5/325MG TABLET PO PRN ×2 (08:02→12:35)
[2021-03-01] MEDS ORDERED: REGADENOSON 0.4 MG/5 ML SYRINGE ONE (08:05)
[2021-03-01 08:58] LABS: HCT (SEDRATE) 48.7 % (39.2-51.8)
[2021-03-01 12:19] VITALS: BP 111/80
[2021-03-01] MEDS ORDERED: PROPOFOL 10 MG/ML, 20ML ONE ×3 (13:16)
[2021-03-01] MEDS: GABAPENTIN 300 MG CAPSULE PO SCH ×2 (14:40→21:57)
[2021-03-01] MEDS: SENNA/DOCUSATE TABLET PO SCH (14:40)
[2021-03-01] MEDS: BUPROPION SR 150 MG TABLET PO SCH ×2 (14:40→21:57)
[2021-03-01] MEDS ORDERED: IBUPROFEN 200 MG TABLET PO PRN (15:30)
[2021-03-01 18:27] VITALS: BP 106/71
[2021-03-01] MEDS: AMLODIPINE 10 MG TAB PO SCH (21:56)
[2021-03-01] MEDS: METOPROLOL TARTRATE 50 MG TAB PO SCH (21:57)
[2021-03-01] MEDS: MELATONIN 5 MG TABLET PO SCH (21:57)
[2021-03-02 01:06] VITALS: BP 110/73
[2021-03-02 07:54] VITALS: BP 119/78
[2021-03-02] MEDS: GABAPENTIN 300 MG CAPSULE PO SCH (09:00)
[2021-03-02] MEDS: BUPROPION SR 150 MG TABLET PO SCH (09:04)
[2021-03-02] MEDS: SENNA/DOCUSATE TABLET PO SCH (09:06)
== END 2021-03-02 13:51 | disposition home or self-care (01) | DRG 313 ==
LOC: ED 14:16 → EDIP 16:01 → 3N 18:13 → 4WST 02-28 11:16 → DCLOUNGE 03-02 13:47
PROVIDERS: ADMIT Emergency Medicine; ATTEND Family Medicine
DX: R07.9 Chest pain, unspecified (principal); I33.0 Acute and subacute infective endocarditis; F11.23 Opioid dependence with withdrawal; F15.20 Other stimulant dependence, uncomplicated; R45.851 Suicidal ideations; I50.30 Unspecified diastolic (congestive) heart failure; F10.230 Alcohol dependence with withdrawal, uncomplicated; Z20.822 Contact with and (suspected) exposure to COVID-19; F17.210 Nicotine dependence, cigarettes, uncomplicated; F41.9 Anxiety disorder, unspecified; F32.9 Major depressive disorder, single episode, unspecified; I11.0 Hypertensive heart disease with heart failure; R09.02 Hypoxemia; Z79.899 Other long term (current) drug therapy
CPT/HCPCS: 36415; 84145; 93017; 99285; C8929; 71275; 74177; 78452; 80053; 80202; 83605; 83735; 84484; 85025; 85651; 86140; 87040; 87635; 93005; 93325; G0378; J0696; J1650; J2704; J2785; J3370; Q9957; Q9967; A9502; C8925; J2270; J7030; J7040; J7050

== ENCOUNTER 2021-03-04 15:52 | Emergency (ER) | payer MEDICAID ==
[~2021-03-04] VITALS: Ht 175.3 cm; Wt 89.0 kg
--- NOTE | 2021-03-04 16:29 | NUR ---
PT C/O EPIGASTRIC ABD PAIN THAT STARTED THIS AM. PAIN 05/31. PT ALSO C/O NAUSEA, NO VOMITING. PT ALSO HAVING SOB AT THIS TIME. PT RECENTLY AT [facility] FOR SOB, HYPOXIA AND CHF. MD RODRIGUEZ BEDSIDE
[2021-03-04 16:30] VITALS: BP 121/88
[2021-03-04] MEDS ORDERED: ASPIRIN 81 MG TABLET CHEW ONE (16:55)
[2021-03-04] MEDS ORDERED: ASPIRIN 81 MG TABLET CHEW PO ONE (17:00)
[2021-03-04] MEDS ORDERED: SODIUM CHLORIDE FLUSH 10ML SYR IVF ONE (17:00)
--- NOTE | 2021-03-04 17:00 | NUR ---
PT REQUESTING STRONGER PAIN MEDS. ADVISED.
[2021-03-04 17:03] LABS: BASOPHILS % (AUTO) 1 % (0-1); EOSINOPHILS % (AUTO) 1 % (1-7); LYMPHOCYTES % (AUTO) 17 % (22-44); MEAN CORPUSCULAR HEMOGLOBIN 32.9 pg (27.5-34.5); MEAN CORPUSCULAR HGB CONC 34.5 g/dL (33.2-36.2); MEAN PLATELET VOLUME 8.7 fL (7.4-10.4); MONOCYTES % (AUTO) 9 % (2-9); NEUTROPHILS % (AUTO) 73 % (42-75); PLATELET COUNT 428 x10^3/uL (130-400); RED BLOOD COUNT 5.71 x10^6/uL (4.38-5.82); RED CELL DISTRIBUTION WIDTH 13.2 % (9.4-14.8)
[2021-03-04 17:12] LABS: ALBUMIN 4.4 g/dL (3.4-5.0); ANION GAP 8 mmol/L (5-15); CALCIUM 9.4 mg/dL (8.5-10.1); CHLORIDE 109 mmol/L (98-107)
--- NOTE | 2021-03-04 17:13 | NUR ---
PT [facility] [phone] OFFICE, BUSINESS EXECUTIVE JEAN-PAUL [phone]
[2021-03-04 17:18] LABS: ALANINE AMINOTRANSFERASE 53 U/L (12-78); ALKALINE PHOSPHATASE 80 U/L (45-117); BILIRUBIN,TOTAL 0.7 mg/dL (0.2-1.0); CREATININE 1.19 mg/dL (0.7-1.3); TOTAL PROTEIN 9.1 g/dL (6.4-8.2); TROPONIN I < 0.015 ng/mL (0.000-0.045)
--- NOTE | 2021-03-04 17:30 | NUR ---
TECH CAME TO ADVISE RN THAT PT WANTED TO LEAVE. DR RODRIGUEZ ADVISED OF SITUATION. PT STILL REQUESTING TO LEAVE AMA. TECH REMOVED IV AND PT WALKED OUT. 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
[2021-03-04 17:38] LABS: MD SCAN
== END 2021-03-04 17:51 | disposition left against medical advice (07) ==
LOC: ED 16:49
DX: R06.00 Dyspnea, unspecified (principal); R00.0 Tachycardia, unspecified; I11.0 Hypertensive heart disease with heart failure; I50.9 Heart failure, unspecified; E11.9 Type 2 diabetes mellitus without complications
CPT/HCPCS: 36415; 71045; 80053; 83690; 83735; 83880; 84484; 85025; 93005; 99285

== ENCOUNTER 2021-03-14 12:23 | Emergency (ER) | payer MEDICAID ==
[~2021-03-14] VITALS: Ht 175.3 cm; Wt 92.3 kg
--- NOTE | 2021-03-14 12:35 | NUR ---
CH[facility]
--- NOTE | 2021-03-14 12:46 | NUR ---
TECHNICAL SERVICE REP: NO ROOM AVAILABLE, PT SITTING IN CHAIR NEAR CHARGE DESK.
[2021-03-14 13:09] LABS: ALANINE AMINOTRANSFERASE 51 U/L (12-78); ALBUMIN 4.1 g/dL (3.4-5.0); ANION GAP 9 mmol/L (5-15); CALCIUM 8.7 mg/dL (8.5-10.1); CHLORIDE 112 mmol/L (98-107); CREATININE 0.84 mg/dL (0.7-1.3); SALICYLATE LEVEL 1.9 mg/dL (2.8-20.0)
[2021-03-14 13:14] LABS: ALKALINE PHOSPHATASE 72 U/L (45-117); BILIRUBIN,TOTAL 0.4 mg/dL (0.2-1.0); TOTAL PROTEIN 7.8 g/dL (6.4-8.2); TROPONIN I < 0.015 ng/mL (0.000-0.045)
[2021-03-14 13:44] LABS: BASOPHILS % (AUTO) 1 % (0-1); EOSINOPHILS % (AUTO) 2 % (1-7); LYMPHOCYTES % (AUTO) 46 % (22-44); MEAN CORPUSCULAR HEMOGLOBIN 32.5 pg (27.5-34.5); MEAN CORPUSCULAR HGB CONC 34.3 g/dL (33.2-36.2); MEAN PLATELET VOLUME 8.5 fL (7.4-10.4); MONOCYTES % (AUTO) 6 % (2-9); NEUTROPHILS % (AUTO) 45 % (42-75); PLATELET COUNT 422 x10^3/uL (130-400); RED BLOOD COUNT 5.12 x10^6/uL (4.38-5.82); RED CELL DISTRIBUTION WIDTH 13.3 % (9.4-14.8)
[2021-03-14 13:51] LABS: MD SCAN
--- NOTE | 2021-03-14 14:15 | NUR ---
pt moved into room 4. pt deeply somulent. 4L O2 PLACED ON PT DUE TO DESATING ON RA. PT REPOSITIONED IN BED TO IMPROVE BREATHING. WILL CONTINUE TO MONITOR. PT DOES NOT WAKE UP TO VERBAL STIMULI AT THIS TIME. PT WILL MOVE TO PAINFUL STIMULI BUT GOES BACK TO SLEEP QUICKLY. PT NOT ANSWERING ANY QUESTIONS CURRENTLY.
--- NOTE | 2021-03-14 14:21 | NUR ---
to matteo from [facility]
--- NOTE | 2021-03-14 15:41 | NUR ---
PT RESTING IN BED WITH EYES CLOSED. NO STATED NEEDS AT THIS TIME. SITTER AT DOOR.
--- NOTE | 2021-03-14 16:05 | NUR ---
PT RESTING COMFORTABLY IN BED AT THIS TIME. SITTER AT DOOR. PT CLOTHING HAS BEEN REMOVED, BAGGED AND TAGGED AND PLACED IN CLOTHING CLOSET. PT REMAINS ON 4L O2 HIS IS SATTING 84% ON RA. SITTER AT DOOR FOR FREQUENT OBS.
--- NOTE | 2021-03-14 17:32 | NUR ---
pt resting in bed with eyes closed. sitter at door. vitals monitors remain in place.
--- NOTE | 2021-03-14 18:42 | NUR ---
pt resting calmly in bed at this time. no stated needs. sitter at door.
[2021-03-14 20:02] LABS: AMPHETAMINE SCREEN, URINE Positive (Negative); BARBITURATE SCREEN, URINE Negative (Negative); BENZODIAZEPINE SCREEN, URINE Negative (Negative); CANNABINOID SCREEN, URINE Negative (Negative); COCAINE SCREEN, URINE Negative (Negative); METHADONE SCREEN, URINE Negative (Negative); OPIATE SCREEN, URINE Negative (Negative)
[2021-03-14 21:15] VITALS: BP 115/70
--- NOTE | 2021-03-14 21:19 | NUR ---
PT RESTING IN BED WITH PT ROOM SI SECURE WITH SITTER AT PT DOOR SITTING ON ANOTHER PT BUT ASSISTING PT WITH NEEDS WHEN REQUESTED. PT ON MONITOR WITH PT VSS. PT A/O X4 PT STATED "HE DOES NOT WANT TO HURT HIMSELF HE JUST WANTS HELP FOR HIS ETOH DRINKING PROBLEM"
== END 2021-03-14 23:52 | disposition home or self-care (01) ==
LOC: ED 12:56 → EDIP 16:55 → UNDOADMOB 16:55
DX: F10.120 Alcohol abuse with intoxication, uncomplicated (principal); R07.89 Other chest pain; Z72.9 Problem related to lifestyle, unspecified; F17.210 Nicotine dependence, cigarettes, uncomplicated; I11.0 Hypertensive heart disease with heart failure; I50.9 Heart failure, unspecified; E11.9 Type 2 diabetes mellitus without complications; Y90.0 Blood alcohol level of less than 20 mg/100 ml
CPT/HCPCS: 36415; 71045; 80053; 80299; 80307; 80320; 80329; 83880; 84484; 85025; 93005; 99406; G0480

== ENCOUNTER 2021-04-22 20:31 | Emergency (ER) | payer MEDICAID ==
[~2021-04-22] VITALS: Ht 175.3 cm; Wt 94.0 kg
[2021-04-22 20:33] VITALS: BP 144/85
--- NOTE | 2021-04-22 20:50 | NUR ---
THIS IS A 35M BIB EMS FROM HOME, PT CALLED W/ C/O ABD PAIN PT GESTURES TO EPIGATRIC AREA WHEN ASKED WHERE HE HURTS. PT ALSO REPORT DRINKING ABOUT 1/2 GAL OF VODKA TODAY AND STS THIS IS NORMAL FOR HIM. PT A/OX4 CONNECTED TO ALL MONITORING VSS, NADN RESTING ON GURNEY AT THIS TIME.
[2021-04-22] MEDS ORDERED: MAALOX/HYOSCYAMINE/LIDOCAINE 45 ML BTL PO ONE (21:00)
[2021-04-22] MEDS ORDERED: MAALOX/HYOSCYAMINE/LIDOCAINE 45 ML BTL ONE (21:11)
--- NOTE | 2021-04-22 21:13 | NUR ---
PT MEDICATED PER MAR, PT HAS DISCONNECTED ALL MONITORS, PT PLACED BACK ON MONITORING
[2021-04-22 21:14] LABS: BASOPHILS % (AUTO) 1 % (0-1); EOSINOPHILS % (AUTO) 2 % (1-7); LYMPHOCYTES % (AUTO) 43 % (22-44); MEAN CORPUSCULAR HEMOGLOBIN 33.9 pg (27.5-34.5); MEAN CORPUSCULAR HGB CONC 34.8 g/dL (33.2-36.2); MEAN PLATELET VOLUME 7.8 fL (7.4-10.4); MONOCYTES % (AUTO) 7 % (2-9); NEUTROPHILS % (AUTO) 47 % (42-75); PLATELET COUNT 456 x10^3/uL (130-400); RED BLOOD COUNT 4.58 x10^6/uL (4.38-5.82); RED CELL DISTRIBUTION WIDTH 14.7 % (9.4-14.8)
[2021-04-22 21:25] LABS: ALBUMIN 3.3 g/dL (3.4-5.0); ANION GAP 9 mmol/L (5-15); CHLORIDE 114 mmol/L (98-107); CREATININE 0.73 mg/dL (0.7-1.3)
[2021-04-22 21:29] LABS: TROPONIN I < 0.015 ng/mL (0.000-0.045)
--- NOTE | 2021-04-22 21:58 | NUR ---
PT RESTING ON BALJINDER TALAVERA
--- NOTE | 2021-04-22 22:35 | NUR ---
Patient/Caregiver given discharge instructions and they have confirmed that they understand the instructions. Patient ambulatory with steady gait. NAD, all questions answered appropriately, denies additional needs at this time. No personal belongings left in room after discharge.
== END 2021-04-22 22:40 | disposition home or self-care (01) ==
LOC: ED 20:45
DX: K29.20 Alcoholic gastritis without bleeding (principal); R00.0 Tachycardia, unspecified; F17.210 Nicotine dependence, cigarettes, uncomplicated; I11.0 Hypertensive heart disease with heart failure; I50.9 Heart failure, unspecified; E11.9 Type 2 diabetes mellitus without complications; Y90.0 Blood alcohol level of less than 20 mg/100 ml
CPT/HCPCS: 36415; 71045; 80048; 82040; 84484; 85025; 93005; 99285; 99406